=== PATIENT | female | born 1950 | race American Indian/Alaskan Native ===

== ENCOUNTER 2018-04-15 12:33 | Outpatient (CLI) | payer MEDICARE ==
--- NOTE | 2018-04-16 07:27 | Nuclear Medicine Report ---
NUCLEAR MEDICINE PARATHYROID SCAN: History: Hypercalcemia. FINDINGS: The initial scintigraphic images of the thyroid bed demonstrate normal and symmetric uptake of the radiotracer in the thyroid bed. Normal salivary and mediastinal activity is identified. The delayed images demonstrate persistent activity in the expected location of the left inferior parathyroid gland. IMPRESSION: Findings consistent with a left inferior parathyroid adenoma.
== END 2018-04-15 12:34 | disposition home or self-care (01) ==
LOC: NM 12:33
PROVIDERS: ATTEND Internal Medicine Nephrology
DX: E83.52 Hypercalcemia (principal)
CPT/HCPCS: 78070; A9500